=== PATIENT | female | born 1960 | race Caucasian/White ===

== ENCOUNTER 2020-09-09 21:11 | Observation (INO) | payer SELFPAY ==
[2020-09-09 22:15] LABS: #Eosinphils 0.1 10x3/uL (0.0-0.5); #Monocytes 0.6 10x3/uL (0.0-1.1); %Basophils 0.7 % (0.0-2.0); %Lymphocytes 37.5 % (18.0-47.0); %Monocytes 10.1 % (0.0-10.0); %Neutrophils 50.5 % (40.0-75.0); Mean Corpuscular HGB CONC 34.3 g/dL (32.0-36.0); Mean Corpuscular Volume 87.3 fl (81.6-98.3); Platelet Count 146 10x3/uL (150-450); RBC Distribution Width 12.5 % (11.5-14.5); Red Blood Cell (RBC) Count 5.34 10x6/uL (3.90-5.03)
[2020-09-09 22:27] LABS: ALT (SGPT) 25 U/L (8-55); AST (SGOT) 25 U/L (5-34); Albumin 4.9 g/dL (3.5-5.0); Alkaline Phosphatase 68 U/L (40-110); Anion Gap 20 mmol/L (10-20); BUN (Urea Nitrogen) 12 mg/dL (9.8-20.1); Bilirubin, Total 0.5 mg/dL (0.2-1.2); Calc. Creatinine Clearance 0 mL/min (70-130); Calcium 8.3 mg/dL (7.8-10.44); Carbon Dioxide 21 mmol/L (22-29); Chloride 104 mmol/L (98-107); Globulin 2.8 g/dL (2.4-3.5); Glucose 99 mg/dL (70-105); Potassium 3.8 mmol/L (3.5-5.1); Protein, Total 7.7 g/dL (6.0-8.3); Sodium 141 mmol/L (136-145)
[2020-09-10] MEDS ORDERED: Nitroglycerin 0.4 MG TAB (25 Tab Bottle) SL PRN (02:03)
[2020-09-10] MEDS ORDERED: Apixaban 5 MG TAB PO SCH (02:15)
[2020-09-10] MEDS ORDERED: Lisinopril 5 MG TAB PO SCH (02:15)
[2020-09-10 04:13] LABS: Cardiac Risk 3.4 (Less than 4.5); Magnesium 1.8 mg/dL (1.6-2.6)
[2020-09-10 04:18] LABS: Troponin I 0.024 ng/mL (< 0.028)
[2020-09-10] MEDS: Levothyroxine Sodium 75 MCG TAB PO SCH (06:44)
[2020-09-10] MEDS: Cholecalciferol 1,000 UNITS (25 MCG) TAB PO SCH (08:36)
[2020-09-10] MEDS: Aspirin Chewable 81 MG TAB PO SCH (08:37)
[2020-09-10] MEDS: Apixaban 5 MG TAB PO SCH ×2 (08:37→21:09)
[2020-09-10] MEDS: Calcium Carbonate 600 MG + Vit D TAB PO SCH ×2 (08:37→16:31)
[2020-09-10] MEDS: Magnesium Oxide 400 MG TAB PO SCH (08:38)
[2020-09-10 10:59] VITALS: BMI 24.9
[2020-09-10] MEDS: Lisinopril 5 MG TAB PO SCH ×2 (11:37→21:12)
[2020-09-10] MEDS ORDERED: Sotalol HCl 80 MG TAB PO SCH (14:00)
[2020-09-10 15:52] LABS: SARS-CoV-2 PCR by NAA Not Detected (NotDetected)
[2020-09-10] MEDS ORDERED: Magnesium Oxide 400 MG TAB PO SCH (21:00)
[2020-09-11 06:11] LABS: #Basophils 0.1 10x3/uL (0.0-0.2); #Eosinphils 0.1 10x3/uL (0.0-0.5); #Monocytes 0.5 10x3/uL (0.0-1.1); #Neutrophils 2.1 10x3/uL (1.5-8.4); %Basophils 0.9 % (0.0-2.0); %Eosinophils 1.5 % (0.0-6.0); %Monocytes 8.8 % (0.0-10.0); %Neutrophils 39.4 % (40.0-75.0); Hemoglobin 14.6 g/dL (12.0-15.5); Mean Corpuscular Hemoglobin 30.2 pg (27.0-33.0); Mean Platelet Volume 12.3 fl (7.4-10.4); Platelet Count 151 10x3/uL (150-450); RBC Distribution Width 12.8 % (11.5-14.5); Red Blood Cell (RBC) Count 4.83 10x6/uL (3.90-5.03); White Blood Cell (WBC) Count 5.3 10x3/uL (3.5-10.5)
[2020-09-11] MEDS: Levothyroxine Sodium 75 MCG TAB PO SCH (06:22)
[2020-09-11 06:38] LABS: Anion Gap 13 mmol/L (10-20); BUN (Urea Nitrogen) 12 mg/dL (9.8-20.1); Calc. Creatinine Clearance 75 mL/min (70-130); Calcium 7.5 mg/dL (7.8-10.44); Carbon Dioxide 26 mmol/L (22-29); Chloride 105 mmol/L (98-107); Glucose 83 mg/dL (70-105); Potassium 3.7 mmol/L (3.5-5.1); Sodium 140 mmol/L (136-145)
[2020-09-11] MEDS: Apixaban 5 MG TAB PO SCH (08:23)
[2020-09-11] MEDS: Aspirin Chewable 81 MG TAB PO SCH (08:24)
[2020-09-11] MEDS: Lisinopril 5 MG TAB PO SCH (08:24)
[2020-09-11] MEDS: Magnesium Oxide 400 MG TAB PO SCH (08:24)
[2020-09-11] MEDS: Cholecalciferol 1,000 UNITS (25 MCG) TAB PO SCH (08:24)
[2020-09-11] MEDS ORDERED: Sotalol HCl 80 MG TAB PO SCH (09:00)
[2020-09-11 11:41] VITALS: BP 92/53; TEMP 98.4
== END 2020-09-11 15:29 | disposition home or self-care (01) ==
LOC: CSHERS 21:11 → CSHTELE 09-10 00:20
PROVIDERS: ADMIT Family Medicine; ATTEND Family Medicine
DX: I48.0 Paroxysmal atrial fibrillation (principal); Z95.810 Presence of automatic (implantable) cardiac defibrillator; I12.9 Hypertensive chronic kidney disease with stage 1 through stage 4 chronic kidney disease, or unspecified chronic kidney disease; N18.2 Chronic kidney disease, stage 2 (mild); E78.5 Hyperlipidemia, unspecified; E03.9 Hypothyroidism, unspecified; Z87.891 Personal history of nicotine dependence; Z85.3 Personal history of malignant neoplasm of breast; Z79.899 Other long term (current) drug therapy; Z79.82 Long term (current) use of aspirin; Z20.822 Contact with and (suspected) exposure to COVID-19
CPT/HCPCS: 71045; 80048; 80053; 80061; 83735; 84443; 84484; 85025; 87635; 93005; 93010; 96374; G0378; U0003; U0005

== ENCOUNTER 2023-12-22 11:58 | Emergency (ER) | payer BC, SELFPAY ==
[2023-12-22] MEDS ORDERED: Proparacaine 0.5% Opth 15 ML BOT ONE (13:38)
== END 2023-12-22 14:08 | disposition home or self-care (01) ==
LOC: CSHERS 11:58
DX: S05.02XA Injury of conjunctiva and corneal abrasion without foreign body, left eye, initial encounter (principal); I10 Essential (primary) hypertension; Z87.891 Personal history of nicotine dependence; X58.XXXA Exposure to other specified factors, initial encounter
CPT/HCPCS: 99283